=== PATIENT | male | born 1960 | race Asian ===

== ENCOUNTER 2021-01-07 15:00 | Outpatient (CLI) | payer OTHER | END 2021-01-07 15:10 | disposition home or self-care (01) | LOC: RAD 15:00 | PROVIDERS: ATTEND General Practice | DX: I11.9 Hypertensive heart disease without heart failure (principal) ==

== ENCOUNTER 2021-01-23 13:25 | Outpatient (CLI) | payer OTHER | END 2021-01-23 13:35 | disposition home or self-care (01) | LOC: NUCLEAR 13:25 | PROVIDERS: ATTEND General Practice | DX: M85.89 Other specified disorders of bone density and structure, multiple sites (principal) ==